=== PATIENT | female | born 1950 | race Caucasian/White ===

== ENCOUNTER 2023-01-30 10:21 | Day surgery (SDC) | payer MEDICARE, OTHER ==
[~2023-01-30] VITALS: Ht 165 cm; Wt 89.8 kg
[2023-01-30] VITALS (9 sets, daily range): BP systolic 107–134; BP diastolic 57–69; PULSE 57–69
[~2023-01-30 10:21] MED LIST: ASCO500 PO; ASPIRIN 81 MG CHEWABLE TABLET ONE; ASPIRIN 81 MG CHEWABLE TABLET PO ONE; CHOL25TA4 PO; DIAZEPAM 5 MG TABLET ONE; DIAZEPAM 5 MG TABLET PO ONE; DiphenhydrAMINE HCL 50 MG CAPSULE ONE; DiphenhydrAMINE HCL 50 MG CAPSULE PO ONE; ICOS0.5C PO; LEVO150 PO; METF-1211 PO; SACU1TAB PO; SODIUM CHLORIDE 0.9% 1,000 ML IV SCH; SODIUM CHLORIDE 0.9% 1,000 ML ONE; ZINC50CA3 PO
[2023-01-30 14:51] LABS: GLUCOMETER DEV NAME(LOC) SDS.
[2023-01-30] MEDS ORDERED: HEPARIN SODIUM 1000 UNITS/NS 500 ML ONE (16:27)
[2023-01-30] MEDS ORDERED: FentaNYL CITRATE PF 100 MCG/2 ML VIAL ONE (16:33)
[2023-01-30] MEDS ORDERED: MIDAZOLAM HCL 2 MG/2 ML VIAL ONE (16:33)
[2023-01-30] MEDS ORDERED: FentaNYL CITRATE PF 100 MCG/2 ML VIAL IVP ONE (17:00)
[2023-01-30] MEDS ORDERED: MIDAZOLAM HCL 2 MG/2 ML VIAL IVP ONE (17:00)
[2023-01-30] MEDS ORDERED: IOHEXOL 300 MG/ML 100 ML VIAL IARTER ONE (17:00)
[2023-01-30] MEDS ORDERED: LIDOCAINE 1% 30 ML/SOD BICARB 8.4% 4 ML SQ ONE (17:00)
[2023-01-30] MEDS ORDERED: HEPARIN SODIUM 1000 UNITS/NS 1,000 ML IARTER ONE (17:00)
== END 2023-01-30 20:05 | disposition home or self-care (01) ==
LOC: CATHLAB 10:21
PROVIDERS: ATTEND Internal Medicine Interventional Cardiology
DX: I35.0 Nonrheumatic aortic (valve) stenosis (principal); I11.0 Hypertensive heart disease with heart failure; I50.9 Heart failure, unspecified; E11.9 Type 2 diabetes mellitus without complications; E78.5 Hyperlipidemia, unspecified; E03.9 Hypothyroidism, unspecified; G47.30 Sleep apnea, unspecified; E66.01 Morbid (severe) obesity due to excess calories; I25.10 Atherosclerotic heart disease of native coronary artery without angina pectoris; Z79.899 Other long term (current) drug therapy; Z68.42 Body mass index [BMI] 45.0-49.9, adult
CPT/HCPCS: 93005; 82962; 93458; C1760; J3010; J1644; J2250; J7030